=== PATIENT | female | born 1950 | race Caucasian/White ===

== ENCOUNTER 2024-02-07 07:38 | Inpatient (IN) | payer MEDICARE, OTHER ==
[~2024-02-07] VITALS: Ht 165.1 cm; Wt 65.8 kg
[~2024-02-07 07:38] MED LIST: BISA10SU11 RC; CALC1TAB91 PO; CALC200T29 PO; CHOL100043 PO; FEXO-65 PO; LUBI8CAP PO; MAGN400T8 PO; PRED10TA PO; SERT25TA PO
[2024-02-07] MEDS ORDERED: LIDOCAINE 2%-EPI 1:100,000 30 ML VIAL ONE (09:35)
[2024-02-07] MEDS ORDERED: dexaMETHasone SOD PHOSPHATE 2 ML ONE (09:35)
[2024-02-07] MEDS ORDERED: ONDANSETRON HCL/PF 4 MG/2 ML VIAL IV PRN (12:30)
[2024-02-07] MEDS ORDERED: HYDROMORPHONE 1 MG/1 ML DISP.SYRIN IV PRN (12:30)
[2024-02-07 12:40] VITALS: BP 113/54; TEMP 97
[2024-02-07] MEDS: IV NS 0.9% 1,000 ML IV PRN (15:09)
[2024-02-07] MEDS ORDERED: MELA5TAB PO (16:19)
[2024-02-07] MEDS ORDERED: FLUT16SP16 BNOSTRILS (16:19)
[2024-02-07] MEDS ORDERED: PANT20TA17 PO (16:19)
[2024-02-07] MEDS ORDERED: LEVO25TA82 PO (16:19)
[2024-02-07] MEDS ORDERED: METO25TA4 PO (16:19)
[2024-02-07] MEDS ORDERED: SERT50TA12 PO (16:19)
[2024-02-07 16:26] VITALS: BP 114/55; TEMP 98.1; O2SAT 92
[2024-02-07 20:00] VITALS: BP 96/44; TEMP 97.7; O2SAT 92
[2024-02-07] MEDS: VANCOMYCIN 1 GM in IV D5W 250ml IV SCH (21:14)
[2024-02-07] MEDS: ACETAMINOPHEN 325 MG TABLET PO PRN (21:23)
[2024-02-08] MEDS: TRAZODONE 50 MG TABLET PO PRN (01:47)
[2024-02-08 08:00] VITALS: BP 104/57; TEMP 97.9; O2SAT 100
== END 2024-02-08 12:00 | disposition home or self-care (01) | DRG 141 ==
LOC: DS 07:38 → MED 13:35
PROVIDERS: ADMIT Nurse Practitioner Acute Care; ATTEND Nurse Practitioner Acute Care
PROC: 0NBT0ZX Excision of Right Mandible, Open Approach, Diagnostic (ICD-10-PCS; principal; 2024-02-07)
PROC: 0NSR0ZZ Reposition Maxilla, Open Approach (ICD-10-PCS; 2024-02-07)
PROC: 0NST0ZZ Reposition Right Mandible, Open Approach (ICD-10-PCS; 2024-02-07)
PROC: 0NUT07Z Supplement Right Mandible with Autologous Tissue Substitute, Open Approach (ICD-10-PCS; 2024-02-07)
PROC: 0NUR07Z Supplement Maxilla with Autologous Tissue Substitute, Open Approach (ICD-10-PCS; 2024-02-07)
PROC: 0NBR0ZX Excision of Maxilla, Open Approach, Diagnostic (ICD-10-PCS; 2024-02-07)
DX: S02.40CA Maxillary fracture, right side, initial encounter for closed fracture (principal); C90.01 Multiple myeloma in remission; M27.2 Inflammatory conditions of jaws; E03.9 Hypothyroidism, unspecified; F32.A Depression, unspecified; X58.XXXA Exposure to other specified factors, initial encounter; Y92.9 Unspecified place or not applicable; D16.4 Benign neoplasm of bones of skull and face; I25.10 Atherosclerotic heart disease of native coronary artery without angina pectoris; Z79.899 Other long term (current) drug therapy; I48.91 Unspecified atrial fibrillation; I35.0 Nonrheumatic aortic (valve) stenosis; Z99.3 Dependence on wheelchair; R10.13 Epigastric pain; D64.9 Anemia, unspecified; D03.9 Melanoma in situ, unspecified; S02.609A Fracture of mandible, unspecified, initial encounter for closed fracture
CPT/HCPCS: 87081-TC; 88305-TC; 88311-TC; 88312-TC; C1713; G0378; J0330; J1100; J1170; J1885; J2405; J2704; J3370; J3490; J7060